=== PATIENT | female | born 1970 | race Two or more races ===

== ENCOUNTER 2016-07-05 07:30 | Inpatient (IN) | payer OTHER ==
[~2016-07-05] VITALS: Ht 158.8 cm; Wt 61.2 kg
[2016-08-02] MEDS ORDERED: TRINESSA1 EAC1 PO (16:22)
[2016-08-02] MEDS ORDERED: LAMICTAL150 MG ORAL (16:22)
[2016-08-02] MEDS ORDERED: KLONOPIN0.5 MG ORAL (16:22)
[2016-08-02] MEDS ORDERED: LITHIUM CARBON300 MG ORAL (16:22)
[2016-08-02] MEDS ORDERED: GEODON40 MG ORAL (16:22)
[2016-08-03] VITALS (11 sets, daily range): BP systolic 118–149; BP diastolic 68–95
[2016-08-03] MEDS ORDERED: ceFAZolin 2gm/50ml Premix 50 ML IVPB ONE (07:00)
[2016-08-03] MEDS ORDERED: Bacitracin 50000 Units Vial ONE (09:15)
[2016-08-03] MEDS ORDERED: Bupivacaine w/Epi 0.25% 30ml Vial INJ ONE (09:15)
[2016-08-03] MEDS ORDERED: Surgicel 4in x 8in TOPIC ONE (09:15)
[2016-08-03] MEDS ORDERED: Vancomycin 1gm inj IVPB ONE (09:15)
[2016-08-03] MEDS ORDERED: Thrombin 5000 units TOPIC ONE (09:15)
--- NOTE | 2016-08-03 09:22 | Anethesia Preoperative Eval ---
Anesthesia Pre-op PMH/ROS General Date of Evaluation: Aug 03, 2016 Anesthesiologist: Margaux ASA Score: ASA 2 Mallampati Score Class I : Soft palate, uvula, fauces, pillars visible Class II: Soft palate, uvula, fauces visible Class III: Soft palate, base of uvula visible Class IV: Only hard plate visible Mallampati Classification: Class II Surgeon: Maxwell Diagnosis: Neck Pain Surgical Procedure: ACDF C5-6, ADR C4-5 Anesthesia History: none Family History: no anesthesia problems Allergies: Coded Allergies: No Known Allergies (Unverified , 08/02/16) Medications: see eMAR Past Medical History Endocrine: Reports: hypothyroidism PSxH Narrative: Uterine Fertility Sx Anesthesia Pre-op Phys. Exam Physician Exam Vital Signs Date Time Temp Pulse Resp B/P Pulse Ox O2 Delivery O2 Flow Rate FiO2 08/03/16 09:41 98.2 66 20 118/71 99 Room Air Constitutional: NAD Neurologic: CN 2-12 intact Cardiovascular: RRR Respiratory: CTA Gastrointestinal: S/NT/ND Airway Exam Mallampati Score: Class II MO: full ROM: limited Teeth: intact Anesthesia Pre-op A/P Risk Assessment & Plan Assessment: ASA 2 Plan: GA, BIS, Glidescope Status Change Before Surgery: No Pre-Antibiotics Dru Grams Ancef IV Given Within 1 Hr of Incision: Yes Time Given: 11:36 Esteban Damico MD Aug 03, 2016 09:22
[2016-08-03] MEDS ORDERED: LR 1000ml 1,000 ML IVLG SCH (09:59)
[2016-08-03] MEDS ORDERED: Meperidine 25mg/ml Inj IV PRN (10:00)
[2016-08-03] MEDS ORDERED: Atropine Inj 1mg/10ml Syr IV PRN (10:00)
[2016-08-03] MEDS ORDERED: Oxycodone/Acetaminophen 5-325 ORAL PRN (10:00)
[2016-08-03] MEDS ORDERED: fentaNYL 100 mcg/2 mL IV PRN (10:00)
[2016-08-03] MEDS ORDERED: Labetalol 5mg/ml 20ml vial IV PRN (10:00)
[2016-08-03] MEDS ORDERED: Hydromorphone 0.5mg/0.5ml inj IVP PRN (10:00)
[2016-08-03] MEDS ORDERED: LORazepam Inj 2mg/ml 1ml IV PRN (10:00)
[2016-08-03] MEDS ORDERED: Norco 5mg/325mg tab ORAL PRN ×2 (10:00→11:30)
[2016-08-03] MEDS ORDERED: Ketorolac 30mg Inj IV PRN (10:00)
[2016-08-03] MEDS ORDERED: Metoclopramide 10mg/2ml Inj IVP PRN ×3 (10:00→14:26)
[2016-08-03] MEDS ORDERED: DiphenhydrAMINE 50mg/ml Inj IVP PRN (10:00)
[2016-08-03] MEDS ORDERED: Norco 7.5mg/325mg tab ORAL PRN ×2 (10:00→11:30)
[2016-08-03] MEDS ORDERED: Ketorolac 60mg Inj IV PRN (10:00)
[2016-08-03] MEDS ORDERED: Midazolam 2mg/2ml Inj IVP PRN (10:00)
--- NOTE | 2016-08-03 10:02 | Immediate Post-Op Evaluation ---
Immediate Post-Op Evalulation Immediate Post-Op Evalulation Procedure: ACDF C5-6, ADR C4-5 Date of Evaluation: Aug 03, 2016 Time of Evaluation: 14:17 IV Fluids: 1100 LR Blood Products: 0 Estimated Blood Loss: 25 Urinary Output: 150 Blood Pressure Systolic: 147 Blood Pressure Diastolic: 95 Pulse Rate: 106 Respiratory Rate: 16 O2 Sat by Pulse Oximetry: 100 Temperature (Fahrenheit): 97.2 Pain Score (1-10): 3 Nausea: No Vomiting: No Complications 0 Patient Status: awake, reacts, patent, extubated, none Hydration Status: adequate Dru Grams Ancef IV Given Within 1 Hr of Incision: Yes Time Given: 11:36 Esteban Damico MD Aug 03, 2016 10:02
[2016-08-03] MEDS ORDERED: NS Irrig 1000ml ONE (11:15)
[2016-08-03] MEDS ORDERED: fentaNYL 250mcg/5ml ONE (11:15)
[2016-08-03] MEDS ORDERED: Dexamethasone 4mg/ml vial ONE (11:15)
[2016-08-03] MEDS ORDERED: Sterile Water Irrig 1000ml IRRIG ONE (11:15)
[2016-08-03] MEDS ORDERED: Glycopyrrolate 0.2mg/ml 1ml Vial ONE (11:15)
[2016-08-03] MEDS ORDERED: Propofol 10mg/ml 20ml IV ONE (11:15)
[2016-08-03] MEDS ORDERED: Lidocaine 1% MPF 10mg/ml 5ml ONE (11:15)
[2016-08-03] MEDS ORDERED: Zemuron 50mg/5ml Inj IV ONE (11:15)
[2016-08-03] MEDS ORDERED: Neostigmine 1mg/ml 10ml Inj ONE (11:15)
[2016-08-03] MEDS ORDERED: fentaNYL 100 mcg/2 mL IV ONE (11:15)
[2016-08-03] MEDS ORDERED: LR 1000ml ONE (11:15)
--- NOTE | 2016-08-03 11:22 | Pre-Procedure Note/Attestation ---
Pre-Procedure Note/Attestation Complete Prior to Procedure Planned Procedure: not applicable Procedure Narrative: Cervical 45 Artificial disc replacement , Cervical 56 anterior cervical discectomy and fusion with allograft Indications for Procedure Pre-Operative Diagnosis: C45,56 herniation Attestation I attest that I discussed the nature of the procedure; its benefits; risks and complications; and alternatives (and the risks and benefits of such alternatives ), prior to the procedure, with the patient (or the patient's legal service support representative). I attest that, if there was a reasonable possibility of needing a blood transfusion, the patient (or the patient's legal service support representative) was given the [facility] standardized written summary, pursuant to the [place] Blood Safety Act ([place] Health and Safety Code # 1645, as amended). I attest that I re-evaluated the patient just prior to the surgery and that there has been no change in the patient's H&P, except as documented below: AMEYA FLEMING Aug 03, 2016 11:22
--- NOTE | 2016-08-03 11:24 | Brief Operative Note ---
Immediate Post Operative Note Operative Note Chief Complaint: neck pain, arm pain, weakness, abnl coordination of mvmt rt arm Pre-op Diagnosis: C45,56 herniation Procedure: Cervical 45 Artificial disc replacement , Cervical 56 anterior cervical discectomy and fusion with allograft Post-op Diagnosis: same as pre-op Findings: consistent w/pre-op dx studies Surgeon: Maxwell Ambulance Dispatcher: Dylon Anesthesiologist: Margaux Anesthesia: general Specimen: none Complications: none Condition: stable Estimated Blood Loss: minimal Implant(s) used?: Yes - prodisc c sz5, nuvasive interlock C sz6 AMEYA FLEMING Aug 03, 2016 11:24
[2016-08-03] MEDS ORDERED: Naloxone 0.4mg/ml Inj IVP PRN (11:30)
[2016-08-03] MEDS ORDERED: HYDROmorphone 1mg/ml Carpuject SUBQ PRN (11:30)
[2016-08-03] MEDS ORDERED: Milk of Magnesia 30ml Ud ORAL PRN (11:30)
[2016-08-03] MEDS ORDERED: HYDROmorphone 1mg/ml Carpuject IVP PRN (11:30)
[2016-08-03] MEDS ORDERED: Acetaminophen (Non formulary) 1,000 MG/100 ML ML IV ONE (13:00)
--- NOTE | 2016-08-03 14:30 | Diagnostic Imaging Report ---
Indication: Neck Pain Findings: Intraoperative views of the cervical spine were obtained. Fluoroscopic imaging localization of the mid cervical spine followed by disc prosthesis at C4-5 and interbody fusion at C5-6. Impression: Intraoperative imaging
--- NOTE | 2016-08-03 16:21 | History and Physical ---
History of Present Illness General Date patient seen: Aug 03, 2016 Time patient seen: 16:17 Reason for Hospitalization: cercival spinal stenosis Present Illness HPI 46 yo F with neck pain, arm pain, and arm weakness 2/2 C4-5,5-6 disc herniation who underwent Cervical 4-5 Artificial disc replacement , Cervical 5-6 anterior cervical discectomy and fusion with allograft Allergies: Coded Allergies: No Known Allergies (Unverified , 08/02/16) Medication History Scheduled Lamotrigine* (Lamictal*), 150 MG ORAL DAILY, (Reported) [place] Carbonate* ([place]*), 300 MG ORAL DAILY, (Reported) Norgestimate-Ethinyl Estradiol (Trinessa), 1 EACH PO DAILY, (Reported) Ziprasidone Hcl* (Geodon*), 80 MG ORAL DAILY, (Reported) Scheduled PRN Clonazepam* (Klonopin*), 0.5 MG ORAL Q6H PRN for For Anxiety, (Reported) Patient History Healthcare decision maker Filipe Erickson - ; Nette Bonilla - Mother Resuscitation status Full Code Advanced Directive on File Past Medical/Surgical History Past Medical/Surgical History: (1) HNP (herniated nucleus pulposus), cervical Family History Family History: Patient reports no known family medical history. Social History Social History: (1) No significant social history Review of Systems All Other Systems: negative except mentioned in HPI Physical Exam General Appearance: no apparent distress, alert HEENT: normocephalic, atraumatic, anicteric, mucous membranes moist, PERRL, EOMI, pharynx normal, no JVD Neck: non-tender, supple Respiratory/Chest: lungs clear, normal breath sounds, no respiratory distress, no accessory muscle use Cardiovascular/Chest: normal peripheral pulses, normal rate, regular rhythm Abdomen: normal bowel sounds, non tender, soft, no mass Extremities: non-tender, normal inspection Skin Exam: warm/dry, other - incision c/d/i 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, no motor/sensory deficits, alert Musculoskeletal: normal muscle bulk Last 24 Hour Vital Signs Date Time Temp Pulse Resp B/P Pulse Ox O2 Delivery O2 Flow Rate FiO2 08/03/16 15:25 92 26 131/79 99 Nasal Cannula 3.0 08/03/16 15:10 97 26 140/87 99 Nasal Cannula 3.0 08/03/16 14:55 97 26 140/83 99 Nasal Cannula 3.0 08/03/16 14:45 88 14 129/70 99 Nasal Cannula 3.0 08/03/16 14:30 71 13 149/68 100 Nasal Cannula 3.0 08/03/16 14:15 95 18 148/91 100 Simple Mask 6.0 08/03/16 14:10 89 18 147/91 100 Simple Mask 6.0 08/03/16 14:09 106 16 100 08/03/16 14:06 97.2 109 18 147/95 100 Simple Mask 6.0 08/03/16 09:41 98.2 66 20 118/71 99 Room Air Laboratory Tests Test 08/03/16 09:30 Urine HCG, Qualitative Negative Height (Feet): 5 Height (Inches): 2.50 Weight (Pounds): 135 Medications Current Medications Medications (Trade) Dose Ordered Sig/Noel Route PRN Reason Start Time Stop Time Status Last Admin Dose Admin Acetaminophen (Tylenol) 650 mg Q4H PRN ORAL headache or temp>101 08/03/16 11:30 09/02/16 11:29 Acetaminophen/ Hydrocodone Bitart ([place] 5/325) 1 tab Q3H PRN ORAL pain score 1-3 08/03/16 11:30 08/10/16 11:29 Acetaminophen/ Hydrocodone Bitart ([place] 7.5/325) 1 ea Q3H PRN ORAL pain score 4-6 08/03/16 11:30 08/10/16 11:29 Acetaminophen/ Hydrocodone Bitart ([place] 7.5/325) 2 ea Q3H PRN ORAL pain scale 7-10 08/03/16 11:30 08/10/16 11:29 Carisoprodol (Soma) 350 mg TIDPRN PRN ORAL SPASM 08/03/16 11:30 09/02/16 11:29 Cefazolin Sodium/ Dextrose (Ancef/D5W 50ml) 50 ml @ 100 mls/hr Q8H IV 08/03/16 19:30 08/04/16 11:59 Dexamethasone Sodium Phosphate (Decadron 4mg/ml vial) 4 mg Q6HR IVP 08/03/16 18:00 08/04/16 12:01 Docusate Sodium (Colace) 100 mg TWICE A DAY ORAL 08/03/16 18:00 09/02/16 17:59 Hydromorphone HCl (Dilaudid) 1 mg Q4H PRN SUBQ Mild Pain (Pain Scale 1-3) 08/03/16 11:30 08/10/16 11:29 Hydromorphone HCl (Dilaudid) 2 mg Q3H PRN SUBQ Severe Pain (Pain Scale 7-10) 08/03/16 11:30 08/10/16 11:29 Hydromorphone HCl (Dilaudid) 2 mg Q4H PRN SUBQ Moderate Pain (Pain Scale 4-6) 08/03/16 11:30 08/10/16 11:29 Hydromorphone HCl 1 mg 1 mg Q2H PRN IVP Breakthrough Pain 08/03/16 11:30 08/10/16 11:29 Magnesium Hydroxide (Mom) 30 ml QIDPRN PRN ORAL Constipation 08/03/16 11:30 09/02/16 11:29 Metoclopramide HCl (Reglan) 10 mg Q6H PRN IVP Nausea & Vomiting 08/03/16 14:26 09/02/16 11:29 Naloxone HCl (Narcan) 0.1 mg PRN PRN IVP RR<12/min, pt unarousable 08/03/16 11:30 09/02/16 11:29 Ondansetron HCl (Zofran) 4 mg Q6H PRN IVP Nausea & Vomiting 08/03/16 11:30 09/02/16 11:29 Prochlorperazine (Compazine) 10 mg Q6H PRN IVP Nausea & Vomiting 08/03/16 11:30 09/02/16 11:29 Sodium Chloride (NS w/KCl 20mEq) 1,000 ml @ 100 mls/hr Q10H IV 08/03/16 15:00 09/02/16 14:59 Temazepam (Restoril) 15 mg HSPRN PRN ORAL Insomnia 08/03/16 11:30 08/10/16 11:29 Assessment/Plan Problem List: (1) HNP (herniated nucleus pulposus), cervical ICD Codes: M50.20 - Other cervical disc displacement, unspecified cervical region SNOMED: [id number] Status: progressing Assessment/Plan 46 yo F with neck pain, arm pain, and arm weakness 2/2 C4-5,5-6 disc herniation who underwent Cervical 4-5 Artificial disc replacement , Cervical 5-6 anterior cervical discectomy and fusion with allograft -pain control, ic, pt/ot, bowel regimen Raymundo Leon M.D. Aug 03, 2016 16:21
[2016-08-03] MEDS ORDERED: Ziprasidone 20mg cap ORAL ONE ×2 (17:30→18:30)
[2016-08-03] MEDS: NS w/KCl 20mEq 1,000 ML IV SCH (17:43)
[2016-08-03] MEDS: Dexamethasone 4mg/ml vial IVP SCH (17:43)
[2016-08-03] MEDS ORDERED: Dexamethasone 4mg/ml vial IVP SCH (18:00)
[2016-08-03] MEDS ORDERED: clonazePAM 0.5mg tab ORAL SCH (18:30)
[2016-08-03] MEDS ORDERED: LaMICtal 150mg tab ORAL SCH (18:30)
[2016-08-03] MEDS ORDERED: DiphenhydrAMINE 50mg/ml Inj IVP ONE (18:50)
[2016-08-03] MEDS: Docusate 100mg cap ORAL SCH (19:28)
[2016-08-04] VITALS: BP 130/81
[2016-08-04] MEDS: Dexamethasone 4mg/ml vial IVP SCH ×3 (00:43→12:16)
[2016-08-04] MEDS: Norco 7.5mg/325mg tab ORAL PRN ×2 (00:46→09:36)
[2016-08-04] MEDS: NS w/KCl 20mEq 1,000 ML IV SCH ×2 (00:52→03:31)
[2016-08-04 04:00] VITALS: BP 132/80
[2016-08-04 08:00] VITALS: BP 103/87
[2016-08-04] MEDS ORDERED: LaMICtal 150mg tab ORAL SCH (09:00)
[2016-08-04] MEDS ORDERED: clonazePAM 0.5mg tab ORAL SCH (09:00)
--- NOTE | 2016-08-04 09:17 | General Progress Note ---
Assessment/Plan Status: stable Assessment/Plan 46 yo F with neck pain, arm pain, and arm weakness 2/2 C4-5,5-6 disc herniation who underwent Cervical 4-5 Artificial disc replacement , Cervical 5-6 anterior cervical discectomy and fusion with allograft, POD#1 -pain control, ic, pt/ot, bowel regimen - Likely DC today Subjective Date patient seen: Aug 04, 2016 Time patient seen: 09:16 ROS Limited/Unobtainable: No Constitutional: Reports: no symptoms HEENT: Reports: no symptoms Cardiovascular: Reports: no symptoms Respiratory: Reports: no symptoms Gastrointestinal/Abdominal: Reports: no symptoms Genitourinary: Reports: no symptoms Neurologic/Psychiatric: Reports: no symptoms Endocrine: Reports: no symptoms Hematologic/Lymphatic: Reports: no symptoms Allergies: Coded Allergies: No Known Allergies (Unverified , 08/02/16) All Systems: reviewed and negative except above Subjective POD1 Doing well OOB Pain controlled Passing gas Objective Last 24 Hour Vital Signs Date Time Temp Pulse Resp B/P Pulse Ox O2 Delivery O2 Flow Rate FiO2 08/04/16 08:00 97.7 86 20 103/87 96 Room Air 08/04/16 04:00 98.2 80 19 132/80 99 Room Air 08/04/16 00:00 98.4 81 19 130/81 99 Room Air 08/03/16 19:58 95.4 62 14 124/76 98 Nasal Cannula 2.0 08/03/16 18:12 97.8 08/03/16 15:40 97.8 100 19 135/82 99 Nasal Cannula 3.0 08/03/16 15:40 97.8 08/03/16 15:26 97.8 08/03/16 15:25 92 26 131/79 99 Nasal Cannula 3.0 08/03/16 15:10 97 26 140/87 99 Nasal Cannula 3.0 08/03/16 14:55 97 26 140/83 99 Nasal Cannula 3.0 08/03/16 14:45 88 14 129/70 99 Nasal Cannula 3.0 08/03/16 14:30 71 13 149/68 100 Nasal Cannula 3.0 08/03/16 14:15 95 18 148/91 100 Simple Mask 6.0 08/03/16 14:10 89 18 147/91 100 Simple Mask 6.0 08/03/16 14:09 106 16 100 08/03/16 14:06 97.2 109 18 147/95 100 Simple Mask 6.0 08/03/16 09:41 98.2 66 20 118/71 99 Room Air Intake and Output 08/03/16 08/04/16 19:00 07:00 Intake Total 1300 ml 650 ml Output Total 175 ml Balance 1125 ml 650 ml Intake IV Total 1300 ml 650 ml Output Urine Total 150 ml Estimated Blood Loss 25 ml # Voids 3 Laboratory Tests 08/03/16 09:30: Urine HCG, Qualitative Negative Height (Feet): 5 Height (Inches): 2.50 Weight (Pounds): 135 Objective General: alert, cooperative, no distress, appears stated age Head: normocephalic, without obvious abnormality, atraumatic Eyes: conjunctivae/corneas clear. PERRL, EOM's intact Throat: lips, mucosa, and tongue normal. MMM Neck: supple, symmetrical, trachea midline, and no JVD Lungs: clear to auscultation bilaterally Heart: regular rate and rhythm, S1, S2 normal, no murmur, click, rub or gallop Abdomen: soft, non-tender, non-distended, bowel sounds normal; no masses or organomegaly Extremities: extremities normal, atraumatic, no cyanosis or edema Pulses: 2+ and symmetric Skin: skin color, texture, turgor normal; no rashes or lesions Neurologic: grossly normal, no focal deficits Shilo Wasserman M.D. Aug 04, 2016 09:17
[2016-08-04] MEDS: Docusate 100mg cap ORAL SCH (09:20)
--- NOTE | 2016-08-04 09:33 | 48 Hour Post Anesthesia Eval ---
Post Anesthesia Evaluation Procedure: ACDF C5-6, ADR C4-5 Date of Evaluation: Aug 04, 2016 Time of Evaluation: 09:32 Blood Pressure Systolic: 105 0: 68 Pulse Rate: 74 Respiratory Rate: 22 Temperature (Fahrenheit): 97.5 O2 Sat by Pulse Oximetry: 99 Airway: patent Nausea: No Vomiting: No Pain Intensity: 2 Hydration Status: adequate Cardiopulmonary Status: stable Mental Status/LOC: patient returned to baseline Follow-up Care/Observations: n/a Post-Anesthesia Complications: none Follow-up care needed: ready to discharge JACKIE TINEO M.D. Aug 04, 2016 09:33
[2016-08-04 12:00] VITALS: BP 109/70
[2016-08-04] MEDS ORDERED: NEURONTIN300 MG ORAL (14:34)
[2016-08-04] MEDS ORDERED: METHYLPREDNISOLO8 MG PO (14:40)
--- NOTE | 2016-08-06 00:58 | Discharge Summary ---
DATE OF ADMISSION: 08/03/2016 DATE OF DISCHARGE: 08/04/2016 REASON FOR ADMISSION: Herniated nucleus pulposus at cervical 4-5 and cervical 5-6. PROCEDURES PERFORMED DURING ADMISSION: 1. Cervical 4-5 artificial disc replacement. 2. Cervical 5-6 fusion. HOSPITAL COURSE/TREATMENT RENDERED: DISCHARGE PHYSICAL EXAM: 1. Patient was ambulating with and without the assistance of physical therapy. 2. Prior to discharge home incision was clean and dry with minimal swelling. 3. Follows commands. 4. Alert and oriented. 5. Marina discontinued, voiding. 6. Incentive spirometer at bedside. 7. IVF hep locked. MOTOR: Demonstrates expected postoperative bulk and tone. Moves biceps, triceps, and deltoid musculature on command. Moves hip flexors, quadriceps, tibialis anterior, EHL, gastrocsoleus musculature on command as well. TREATMENT RENDERED: 1. Daily nursing care. 2. Physical Therapy. 3. Occupational Therapy. 4. Intravenous medications. 5. Oral medications. 6. Daily postoperative examinations by Spine surgery team. CONDITION OF PATIENT ON DISCHARGE: The condition on discharge is stable for discharge to home. DISCHARGE INSTRUCTIONS: Our specific instructions relating to physical activity, medications diet and follow-up care are detailed in our standard operative folder and were given to this patient prior to surgery. We will however summarize these briefly as stated below. Regarding physical activity we would like the patient to limit their flexion, extension and rotation. We also require a limitation on their bending lifting and twisting. All medication has been called in prior to surgery to their pharmacy of choice. They can resume their regular diet once tolerated. We would like them to shower and limit soaking the wound in a tub/Jacuzzi/the ocean for a period of one month or until the incision is completely healed. We will have them follow up in our office in three weeks time for their regularly scheduled appointment. They understand to call our office tomorrow to schedule the time for their three week followup appointment. The patient will notify us should they experience any increase in the severity of pain, redness/swelling/ or drainage from their incision. Bebeto Arreola M.D. DR: AYSHA JOB#: [id number] CC:
--- NOTE | 2016-08-06 12:04 | Discharge Summary ---
Discharge Summary Hospital Course Date of Admission Aug 03, 2016 at 08:30 Date of Discharge Aug 04, 2016 at 14:50 Admitting Diagnosis cervical herniated disc Reason for Hospitalization: neck pain, arm pain, and arm weakness admitted for elective surgery HPI Beryl Erickson is a 46 year old female who was admitted on Aug 03, 2016 at 08: 30 for Cervial Herniated Disc,Radiculopathy Consultations IM- dr Knott Procedures 08/03 - Cervical 45 Artificial disc replacement , Cervical 56 anterior cervical discectomy and fusion with allograft Hospital Course 46 yo F with neck pain, arm pain, and arm weakness s/p 08/03 - Cervical C4C5 Artificial disc replacement , Cervical C5C6 anterior cervical discectomy and fusion with allograft pain management PT eval and Rx, ambulates freely no focal weakness bowel regimen, had BM IS voided freely tolerate diet stable fro dc fup with surgeon as outpatient Discharge Medications Continued Medications: Clonazepam* (Klonopin*) 0.5 Mg Tablet 0.5 MG ORAL Q6H PRN for For Anxiety, #15 TAB 0 Refills Gabapentin (Neurontin) 300 Mg Capsule 300 MG ORAL THREE TIMES A DAY, #15 CAP 0 Refills Lamotrigine* (Lamictal*) 150 Mg Tablet 150 MG ORAL DAILY, #30 TAB 0 Refills [place] Carbonate* ([place]*) 300 Mg Capsule 300 MG ORAL DAILY, CAP 0 Refills Methylprednisolone (Methylprednisolone) 8 Mg Tablet 10 MG PO QID, #50 TAB Norgestimate-Ethinyl Estradiol (Trinessa) 1 Each Tablet 1 EACH PO DAILY, TAB Ziprasidone Hcl* (Geodon*) 40 Mg Capsule 80 MG ORAL DAILY, #30 CAP 0 Refills Discharge Condition Upon Discharge: improving, stable Discharge Disposition Patient was discharged to Home (01) Discharge Diagnoses: (1) S/P cervical discectomy (2) Neck pain (3) HNP (herniated nucleus pulposus), cervical Saleh (Ana)Quyen OIL EXTRACTOR Aug 06, 2016 12:04
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
--- NOTE | 2016-08-06 23:07 | Operative Note - Dictated ---
Duplicate OP note please refer to version 1 MTDD
== END 2016-08-04 14:50 | disposition home or self-care (01) | DRG 473 ==
LOC: SDSOVERFLO 08-03 08:30 → 3E 08-03 16:00
DX: M50.121 Cervical disc disorder at C4-C5 level with radiculopathy (principal); M48.02 Spinal stenosis, cervical region; V89.2XXS Person injured in unspecified motor-vehicle accident, traffic, sequela; F31.9 Bipolar disorder, unspecified
CPT/HCPCS: 36415; 72040; 76001; 81025; 86850; 86900; 86901; 87081; 94003; 94150; J2180; J2405; J2710